=== PATIENT | female | born 1940 | race Hispanic/Latino ===

== ENCOUNTER 2023-05-05 04:02 | Emergency (ER) | payer OTHER ==
[~2023-05-05] VITALS: Ht 147.3 cm; Wt 63.0 kg
[2023-05-05] MEDS ORDERED: LISI1TAB49 PO (04:23)
[2023-05-05] MEDS ORDERED: METO50TA18 PO (04:23)
[2023-05-05] MEDS ORDERED: HYDROXYZINE 25 MG TABLET PO ONE (04:30)
[2023-05-05 04:31] LABS: BASOPHILS # (AUTO) 0.04 K/uL (0.00-0.20); BASOPHILS % (AUTO) 0.4 % (0.0-5.0); HEMATOCRIT 39.3 % (36-48); IMMATURE GRANULOCYTE ABSOLUTE 0.04 K/uL (0-1); LYMPHOCYTES # (AUTO) 2.7 K/uL (1.0-4.8); LYMPHOCYTES % (AUTO) 27.4 % (21.0-51.0); MEAN CORPUSCULAR HEMOGLOBIN 30.4 pg (27.0-33.0); MEAN CORPUSCULAR HGB CONC 34.1 g/dL (32.0-36.0); MEAN CORPUSCULAR VOLUME 89.1 fL (79-99); MONOCYTES # (AUTO) 0.7 K/uL (0.1-1.0); MONOCYTES % (AUTO) 7.2 % (3.0-13.0); NEUTROPHILS # (AUTO) 6.1 K/uL (1.8-7.7); NEUTROPHILS % (AUTO) 61.6 % (40.0-77.0); PLATELET COUNT (AUTO) 232 K/uL (130-400); RED BLOOD CELL COUNT(AUTO) 4.41 MIL/uL (4.00-5.50); RED CELL DISTRIBUTION WIDTH 13.1 % (11.0-15.5); WHITE BLOOD COUNT (AUTO) 9.9 K/uL (4.8-10.8)
[2023-05-05 04:45] LABS: CREATININE 0.8 mg/dL (0.5-1.5); POTASSIUM 3.9 mmol/L (3.5-5.1)
[2023-05-05 04:47] LABS: INR <= 0.93 (0.85-1.15); PROTHROMBIN TIME 10.3 SEC (9.6-11.6)
[2023-05-05 04:48] LABS: PARTIAL THROMBOPLASTIN TIME 26.2 SEC (26.3-35.5)
[2023-05-05 04:58] LABS: ALBUMIN 3.8 g/dL (3.5-5.0); BILIRUBIN,TOTAL 0.5 mg/dL (0.2-1.0); MAGNESIUM 2.2 mg/dL (1.80-2.40); THYROID STIMULATING HORMONE 3.46 uIU/mL (0.36-3.74); TOTAL PROTEIN, SERUM 7.3 g/dL (6.0-8.3)
[2023-05-05 05:21] LABS: APPEARANCE,URINE CLEAR (CLEAR); BILIRUBIN,URINE NEGATIVE (NEGATIVE); COLOR,URINE COLORLESS (YELLOW); GLUCOSE, URINE (UA) NEGATIVE (NEGATIVE); KETONES,URINE NEGATIVE (NEGATIVE); LEUKOCYTE ESTERASE ,URINE NEGATIVE Leu/uL (NEGATIVE); NITRATE,URINE NEGATIVE (NEGATIVE); OCCULT BLOOD,URINE NEGATIVE (NEGATIVE); PH,URINE 7.5 (5.0-8.0); PROTEIN,URINE NEGATIVE (NEGATIVE); UROBILINOGEN,URINE 0.2 mg/dL (0.2-1.0)
[2023-05-05 05:22] LABS: ADD UA MICROSCOPIC NO
[2023-05-05 05:29] VITALS: BP 142/55; PULSE 60; RESP 19; O2SAT 98
[2023-05-05 05:35] LABS: B-TYPE NATRIURETIC PEPTIDE 38 pg/mL (0-100)
[2023-05-05] MEDS ORDERED: HYDR25CA PO (06:03)
== END 2023-05-05 06:12 | disposition home or self-care (01) ==
LOC: EDH 04:02
DX: F41.9 Anxiety disorder, unspecified (principal); E11.9 Type 2 diabetes mellitus without complications; I10 Essential (primary) hypertension; Z90.710 Acquired absence of both cervix and uterus
CPT/HCPCS: 36415; 71045; 80053; 81003; 83735; 83880; 84443; 84484; 85025; 85610; 85730; 93005

== ENCOUNTER 2024-11-16 11:42 | Emergency (ER) | payer OTHER ==
[~2024-11-16] VITALS: Ht 149.9 cm; Wt 61.7 kg
[~2024-11-16 11:42] MED LIST: HYDR25CA PO; LISI1TAB49 PO; METO50TA18 PO
[2024-11-16] MEDS ORDERED: HYDR-4060 PO (13:29)
--- NOTE | 2024-11-16 13:32 | ERN ---
General Chief Complaint: FOOT INJURY/PAIN Stated Complaint: RT FOOT INJURY AND PAIN Time Seen by MD: 11:48 History of Present Illness Initial Comments 84-year-old female who presents for right foot pain. She reports that she possibly rolled her foot earlier this morning and injured it. She reports pain of the lateral side of the right foot. No other injuries. No falls. Allergies: Coded Allergies: No Known Drug Allergies (Unverified Allergy, Unknown, 05/05/23) Home Meds Active Scripts Hydroxyzine Pamoate (Vistaril) 25 Mg Capsule, 50 MG PO Q6HPRN PRN for anxiety, #12 CAP Prov:JACKIE TAYLOR MD 05/05/23 Reported Medications Lisinopril/Hydrochlorothiazide (Lisinopril-Hctz 10-12.5 mg Tab) 10 Mg-12.5 Mg T ablet, 1 EACH PO DAILY, TAB 05/05/23 Metoprolol Tartrate (Metoprolol Tartrate) 50 Mg Tablet, 50 MG PO BID, TAB 05/05/23 Past Medical History Past Medical History: Diabetes-Type II, Hypertension Past Surgical History: Hysterectomy ROS Dictation CONSTITUTIONAL: No chills, no fever, no weakness, no diaphoresis, no malaise. HEAD/FACE: No signs of trauma. EENT: No eye pain, no blurred vision, no tearing, no double vision, no ear pain, no ear discharge, no nose pain, no nasal congestion, no throat pain, no throat swelling, no mouth pain. RESPIRATORY: No cough, no orthopnea, no SOB, no stridor, no wheezing. CARDIOVASCULAR: No chest pain, no edema, no palpitations, no syncope. GASTROINTESTINAL/ABDOMINAL: No abdominal pain, no constipation, no diarrhea, no nausea, no vomiting. GENITOURINARY: No abnormal discharge, no dysuria, no frequent urination, no hematuria. No complaints of pain in the genitals. MUSCULOSKELETAL: Right foot pain INTEGUMENTARY: No change in color, no change in hair/nails, no dryness, no lesion, no lumps, no rash. NEUROLOGICAL/PSYCH: No anxiety, not depressed, no emotional problem, no headache, no numbness, no pre-existing deficit, no history of seizures, no tremors, no weakness. HEMATOLOGIC/LYMPHATIC: Not anemic, no history of blood clots, no apparent bleeding, no bruising, glands not swollen. All Systems Negative, Except as Noted. Physical Exam Physical Exam Dictation VITAL SIGNS: Reviewed. GENERAL APPEARANCE: Alert, oriented x3, no acute distress HEAD AND FACE: Non-traumatic. EYES: PERRL, pink conjunctivas, eyelid no trauma, anterior chamber clear. EARS: Pinnas intact and no signs of trauma or erythema. Ear canals clear and no discharge. TMs no erythema. NOSE: No discharge, no bleeding. OROPHARYNX: Mouth normal, teeth no caries, tongue pink. Pharynx clear, no erythema. Tonsils no exudates, no abscesses noted. Mucous membrane moist. NECK: Supple, non-tender, no thyromegaly, no masses, no JVD, no bruits. BREAST: Deferred. CHEST: No tenderness, no crepitus, no paradoxical movement, no retractions. LUNGS: Clear, well-ventilated, symmetric, no rales, no wheezing, no rhonchi, no stridor, good breath sounds bilaterally. HEART: Regular rate, regular rhythm, no murmur, no gallops. VASCULAR: No peripheral edema. ABDOMEN: Soft, positive bowel sounds, nondistended, no guarding, nontender, no rebound, no masses no hepatomegaly, no splenomegaly, no Mann's sign, no hernias. RECTAL: Deferred. GENITAL: Deferred. NEUROLOGICAL: Normal speech, gross motor function intact, gross sensory function intact. MUSCULOSKELETAL: Neck nontender, full range of motion, back nontender, full range of motion. Right foot swelling bruising EXTREMITIES: Nontender, full range of motion. SKIN: Color pink, dry, no turgor, no rash, no lacerations, no abrasions, no contusions. LYMPHATICS: Deferred. [facility] CC: R foot pain s/p injury Historian: patient Comorbidities: Limitations by social determinats of health: none Ddx: fracture, sprain/strain VS: Stable, remained stable in ED No labs indicated Foot XR (indepenedently interpreted by me): Displaced fracture of the 4th metatarsal shaft, also 5th metatarsal fracture without displacement. Consulted Dr. Carrasco, orthopedist. Recommends splinting an outpatient follow up. The patient was placed in a posterior slab, nonweightbearing. We will DC with ibuprofen Penn tabs. Given information for Dr. Carrasco. ED Course Orders Procedure Category Date Status Time Foot Comp 3+Vws Rt RAD 11/16/24 Taken 12:01 Ibuprofen 600 Mg PHA 11/16/24 Complete Tablet (Motrin) 12:30 Current Medications Medications (Trade) Dose Ordered Sig/Jacob Route PRN Reason Start Time Stop Time Status Last Admin Dose Admin Ibuprofen (moTRIN) 600 mg ONCE ONCE PO 11/16/24 12:30 11/16/24 12:31 DC 11/16/24 12:29 Vital Signs Date Time Temp Pulse Resp B/P (MAP) Pulse Ox O2 Delivery O2 Flow Rate FiO2 11/16/24 11:56 98.2 55 16 128/62 98 Room Air* 0 21 11/16/24 11:47 98.1 20 20 162/60 98 Room Air DX & DISP Disposition: Discharge Departure Impression: Primary Impression: Fracture of fourth metatarsal bone of right foot Condition: Stable Scripts Hydrocodone/Acetaminophen (Hydrocodon-Acetaminophen 5-325) 5 Mg-325 Mg Tablet 1 TAB PO TIDP PRN for pain for 5 Days, #15 TAB 0 Refills Prov: TEO MALDONADO DO 11/16/24 Additional Instructions: You have a fracture of the 4th metatarsal of your foot. You were placed in a splint. Do not bear weight on this foot until you are cleared by orthopedics. You can take 800 mg of ibuprofen up to 3 times a day as needed for pain. I have also prescribed Penn tabs to use as needed for significant pain. Please go to Dr. Carrasco's office tomorrow morning. Referrals: BUDDY DURAN MD (PCP) MARISEL DOUGLASS MD, RYAN E DO Nov 16, 2024 13:32
[2024-11-16 13:33] VITALS: BP 124/60; PULSE 58; RESP 16; TEMP 98.3; O2SAT 98
--- NOTE | 2024-11-16 14:12 | HMCIMG ---
EXAM: CR right foot, 3 View. CLINICAL HISTORY: lateral foot pain s/p injury COMPARISON: None provided. FINDINGS: Mildly displaced oblique fracture of the mid to distal fourth metatarsal. Nondisplaced oblique fracture at the mid to distal fifth metatarsal. Joint spaces remain anatomically aligned. Soft tissue edema at the dorsal midfoot. IMPRESSION: 1. Mildly displaced oblique fracture of the mid to distal fourth metatarsal and nondisplaced oblique fracture of the mid to distal fifth metatarsal 2. Soft tissue edema at the dorsal midfoot [facility]
== END 2024-11-16 13:41 | disposition home or self-care (01) ==
LOC: EDH 11:42
DX: S92.341A Displaced fracture of fourth metatarsal bone, right foot, initial encounter for closed fracture (principal); E11.9 Type 2 diabetes mellitus without complications; I10 Essential (primary) hypertension; Z79.899 Other long term (current) drug therapy; Z90.710 Acquired absence of both cervix and uterus; X58.XXXA Exposure to other specified factors, initial encounter; Y93.89 Activity, other specified; Y92.89 Other specified places as the place of occurrence of the external cause; Y99.8 Other external cause status
CPT/HCPCS: 29515; 73630; 99283